=== PATIENT | male | born 1995 | race Hispanic/Latino ===

== ENCOUNTER 2018-01-09 13:19 | Outpatient (CLI) | payer OTHER ==
--- NOTE | 2018-01-09 16:19 | MRI ---
MRI LEFT WRIST WITHOUT CONTRAST: Date: 01/09/18 INDICATION: Left wrist pain for 1 year without known injury. TECHNIQUE: Multiplanar, multisequence MR images were obtained of the left wrist without IV contrast or interarti cular contrast. COMPARISON: None. FINDINGS: The bone marrow signal intensity appears within normal limits. No joint effusion is evident. Carpal a lignment appears within normal limits. The scapholunate and lunotriquetral ligaments are intact. The visualized extrinsic ligaments appear intact. The TFC appears intact. The extensor tendons appear wit hin normal limits. No tenosynovitis is evident. The carpal tunnel contents appear within normal limit s. The FCR and FCU tendons appear within normal limits. The ulnar neurovasculature appears within nor mal limits. No acute fracture is demonstrated. IMPRESSION: No definite acute abnormality. Some limitations of exam due to motion artifact. POS: JANENE
== END 2018-01-09 13:20 | disposition home or self-care (01) ==
LOC: SCSMRI 13:19
PROVIDERS: ATTEND Orthopaedic Surgery
DX: M25.532 Pain in left wrist (principal)